=== PATIENT | female | born 1995 | race Caucasian/White ===

== ENCOUNTER 2017-01-19 09:31 | Emergency (ER) | payer BC, OTHER ==
[2017-01-19] MEDS ORDERED: SODIUM CHLORIDE 0.9% 1000ML 1,000 ML IV ONE (09:38)
[2017-01-19] MEDS ORDERED: ONDANSETRON HCL 4 MG/2 ML SOL ONE (09:39)
[2017-01-19] MEDS ORDERED: ONDANSETRON HCL 4 MG/2 ML SOL IV ONE (09:39)
[2017-01-19] MEDS ORDERED: SODIUM CHLORIDE 0.9% FLUSH 10 ML SOL IV PRN (09:39)
[2017-01-19 09:53] LABS: HEMATOCRIT 41 % (35-47); MEAN CORPUSCULAR HGB CONC 36.1 gm/dl (32.0-36.0); MEAN CORPUSCULAR VOLUME 88 fL (81-99)
[2017-01-19 10:03] LABS: CALCIUM 8.3 mg/dl (8.5-10.1); POTASSIUM 3.4 mMol/L (3.5-5.1)
[2017-01-19] MEDS ORDERED: POTASSIUM CHLORIDE 10 MEQ TER PO ONE (10:24)
[2017-01-19] MEDS ORDERED: POTASSIUM CHLORIDE 10 MEQ TER ONE (10:29)
[2017-01-19 10:41] LABS: BASOPHILS % (MANUAL) 0 % (0-3); EOSINOPHILS % (MANUAL) 3 % (0-9); LYMPHOCYTES % (MANUAL) 11 % (10-50); NORMAL RBCS PRESENT
[2017-01-19 10:55] VITALS: RESP 18; TEMP 98.3
[2017-01-19 11:33] VITALS: BP 106/72; PULSE 68; O2SAT 100
== END 2017-01-19 11:27 | disposition home or self-care (01) ==
LOC: ED 09:31
DX: R19.7 Diarrhea, unspecified (principal); E87.6 Hypokalemia
CPT/HCPCS: 80048; 85007; 85027; 96365; 96374; 99284; J2405